=== PATIENT | male | born 1945 | race Caucasian/White ===

== ENCOUNTER 2020-06-23 15:41 | Inpatient (IN) | payer OTHER, MEDICARE ==
[~2020-06-23] VITALS: Ht 188 cm; Wt 110.3 kg
--- NOTE | 2020-06-23 15:58 | NUR ---
PATIENT TO ROOM VIA WHEELCHAIR AND PHYSICIAN NOTIFIED OF PATIENT STATUS
--- NOTE | 2020-06-23 16:21 | NUR ---
REGISTRATION AT BEDSIDE
[2020-06-23 16:37] LABS: HEMATOCRIT 36.9 % (39.0-50.0); HEMOGLOBIN 12.4 g/dl (14.0-18.0); IMMATURE GRANULOCYTES 1.1 % (0.0-5.0); MEAN CELL VOLUME 87.4 fL CALC (80.0-100.0); MEAN CORPUSCULAR HGB 29.4 pG CALC (26.0-32.0); MEAN CORPUSCULAR HGB CONC 33.6 g/dL CAL (32.0-36.0); NEUT# 8.18 thou/uL (1.82-7.42); RED BLOOD COUNT 4.22 mill/uL (4.70-6.10); RED CELL DISTRI WIDTH 14.3 % (11.5-15.5)
[2020-06-23 16:54] LABS: ALBUMIN 3.7 g/dL (3.2-5.0); ALKALINE PHOSPHATASE 45 u/l (38-126); ANION GAP 16 (6-22 (CALC)); BILIRUBIN, TOTAL 0.9 mg/dL (0.0-1.4); BUN 32 mg/dL (8-23); BUN/CREATININE RATIO 30 (12-20 (CALC)); CARBON DIOXIDE 22 mmol/l (22-30); CHLORIDE 100 mmol/l (95-108); CREATININE 1.1 mg/dL (0.7-1.3); GFR > 60 ML/MIN (>=60 (CALC)); GFR FOR AFR.AMER. > 60 ML/MIN (>=60 (CALC)); LIPASE 198 u/l (23-300); POTASSIUM 4.2 mmol/l (3.5-5.1); SGOT/AST 70 u/l (19-48); SODIUM 133 mmol/l (137-146); TOTAL PROTEIN 6.6 g/dL (6.3-8.2)
[2020-06-23 16:56] LABS: ACT PARTIAL THROMBO TIME 30.9 SECONDS (20.0-32.5); INTERNATIONAL NORMALIZED RATIO 1.1 RATIO (0.7-1.3); PROTHROMBIN TIME 10.9 SECONDS (9.0-12.5)
[2020-06-23 17:03] LABS: D-DIMER 1.28 mg/L (0.19-0.60)
--- NOTE | 2020-06-23 17:15 | NUR ---
P[T AWARE OF PLANNED LAB WORK, NEED FOR BC, AND EKG ETC... PT SLOW TO RESPOND BUT IS ALERT AND ORIENTED, PER BROTHER IN LAW HE IS NORMALLY VERY SHARP AND WITH IT.
--- NOTE | 2020-06-23 18:10 | NUR ---
CALL INTO TO RECONCILE MEDICATIONS, AWAITING CALL BACK, PT AWARE OF NEED FOR IV ACCESS AND PLAN FOR CT SCAN
[2020-06-23] MEDS ORDERED: ZESTRIL10 M1 PO (18:38)
[2020-06-23] MEDS ORDERED: GLIMEPIRIDE4 MG PO (18:39)
[2020-06-23] MEDS ORDERED: METFORMIN500 M2 PO (18:39)
[2020-06-23] MEDS ORDERED: SIMVASTATIN40 MG PO (18:40)
[2020-06-23] MEDS ORDERED: ACTOS30 MG PO (18:40)
--- NOTE | 2020-06-23 18:43 | NUR ---
RETURNS CALL MEDICATION REC COMPLETED, PT [facility] RADIOLOGY [facility]
[2020-06-23 18:50] LABS: URINE BILIRUBIN - DIPSTICK NEGATIVE (NEGATIVE); URINE BLOOD DIPSTICK TRACE-INTACT (NEGATIVE); URINE GLUCOSE - DIPSTICK NEGATIVE (NEGATIVE); URINE KETONE NEGATIVE (NEGATIVE); URINE LEUK ESTERASE NEGATIVE (NEGATIVE); URINE NITRITE - DIPSTICK NEGATIVE (Negative); URINE PH 5.5 (4.5-8.0); URINE PROTEIN - DIPSTICK 100 mg/dL (NEG-TRACE); URINE SPECIFIC GRAVITY 1.025; URINE UROBILINOGEN - DIPSTICK 0.2 E.U./dL (0.2)
[2020-06-23 18:52] LABS: URINE COLOR DK. YELLOW
[2020-06-23 18:57] LABS: URINE RBC 0-2 RBC/hpf (0-5)
--- NOTE | 2020-06-23 19:00 | NUR ---
RETURNED FROM RADIOLOGY. AWAKE ALERT CONVERSANT.
--- NOTE | 2020-06-23 20:00 | NUR ---
RESTING COMFORTABLY. AWAITING TEST RESULTS
--- NOTE | 2020-06-23 21:00 | NUR ---
NO CHANGE IN EXAM.
--- NOTE | 2020-06-23 22:15 | NUR ---
SAO2 91%. INCREASED O2 TO 4 LPM.
[2020-06-24 02:25] VITALS: BP 152/71
--- NOTE | 2020-06-24 02:26 | NUR ---
PLACED IN HOSPITAL BED. STATES FEELING BETTER.
--- NOTE | 2020-06-24 02:43 | NUR ---
DESATS TO 88 ON 4 LPM. WILL CONVERT TO VENTI-MASK.
--- NOTE | 2020-06-24 02:58 | NUR ---
PLACED ON 50% VM. SAO2 91%. ABG ORDERED.
--- NOTE | 2020-06-24 03:17 | NUR ---
SAO2 STABLE AT 94% ON 50% VM.
--- NOTE | 2020-06-24 05:59 | NUR ---
AM LABS DRAWN. COMFORTABLE. SLEEPING. SAO2 96% ON 50% VM.
[2020-06-24 06:15] LABS: HEMATOCRIT 36.9 % (39.0-50.0); HEMOGLOBIN 12.6 g/dl (14.0-18.0); IMMATURE GRANULOCYTES 1.9 % (0.0-5.0); MEAN CELL VOLUME 87.2 fL CALC (80.0-100.0); MEAN CORPUSCULAR HGB 29.8 pG CALC (26.0-32.0); MEAN CORPUSCULAR HGB CONC 34.1 g/dL CAL (32.0-36.0); NEUT# 8.02 thou/uL (1.82-7.42); RED BLOOD COUNT 4.23 mill/uL (4.70-6.10); RED CELL DISTRI WIDTH 14.4 % (11.5-15.5)
[2020-06-24 06:22] LABS: ALBUMIN 3.4 g/dL (3.2-5.0); ALKALINE PHOSPHATASE 46 u/l (38-126); ANION GAP 17 (6-22 (CALC)); BUN 31 mg/dL (8-23); BUN/CREATININE RATIO 37 (12-20 (CALC)); CARBON DIOXIDE 22 mmol/l (22-30); CHLORIDE 100 mmol/l (95-108); CREATININE 0.8 mg/dL (0.7-1.3); GFR > 60 ML/MIN (>=60 (CALC)); GFR FOR AFR.AMER. > 60 ML/MIN (>=60 (CALC)); SGOT/AST 58 u/l (19-48); SODIUM 134 mmol/l (137-146); TOTAL PROTEIN 6.2 g/dL (6.3-8.2)
--- NOTE | 2020-06-24 07:00 | NUR ---
RECEIVED BEDSIDE REPORT FROM JACK RAMIREZ.
[2020-06-24 08:00] VITALS: BP 136/64
--- NOTE | 2020-06-24 08:15 | NUR ---
RESTING IN SEMI FOWLERS WITH EYES CLOSED, AWAKENS EASILY. RESPS EVEN AND UNLABORED ON 50% VENTI MASK. ORIENTED TO PERSON, PLACE AND TIME. PO FOOD AND FLUIDS OFFERED. DENIES NEEDS AT THIS TIME. BED IN LOWEST POSITION WITH WHEELS LOCKED. CALL LIGHT WITHIN REACH.
[2020-06-24 12:00] VITALS: BP 146/71
--- NOTE | 2020-06-24 13:45 | NUR ---
DR LANCASTER AT BEDSIDE.
--- NOTE | 2020-06-24 14:57 | NUR ---
REPORT CALLED TO [facility].
--- NOTE | 2020-06-24 15:10 | NUR ---
TO MED SURG VIA BED. O2 AT 2L VIA NC. TELE MONITOR IN PLACE.
[2020-06-24 15:46] VITALS: BP 134/69
--- NOTE | 2020-06-24 16:22 | NUR ---
PT ARRIVED VIA BED FROM THE ER. AXOX3 O2 ANT 3-4 L . TELE PLACED ON THE PATIENT RUNNING SR. HL TO THE R AC. DENIES PAIN, NO RESP DESTRESS NOTED. NEUROS INTACT. TEDS PLACED ON THE PATIENT. EDUCATED TO THE ROOM CALL LIGHT TV BED AND TELEPHONE. REPOSITIOEND FOR COMFORT, SIDE RAILS UP CALL LIGHT IN REACH BED LOCKED IN LOW POSITION, ALL SAFTY MEASURES IN PLACE WILL CONTINUE TO MONIOTR THE PATIENT.
--- NOTE | 2020-06-24 20:00 | NUR ---
PT VERY PLEASANT RESTING IN BED. URINAL BY THE BED SIDE ALONG WITH CALL LIGHT ALERT AND ORIENTED. NO COMPLAINT OF PAIN. WAITING ON ABT. FAL RISK WRIST BAND ON WRIST. IV ON RAC AND PATENT. CALL LIGHT WITHIN RANGE
[2020-06-24 20:30] VITALS: BP 137/66
--- NOTE | 2020-06-24 22:22 | NUR ---
CHE CALLED WITH A CRITICAL GLUCOSE OF 505. PT ASYTOMATIC SLIDING SCALE GIVEN PHYSICAN NOTIFIED
[2020-06-24 23:28] VITALS: BP 157/70
--- NOTE | 2020-06-25 | NUR ---
PT SLEEPING PEACEFULYY ON BED O2 STILL RUNNING. NO COMPLAINT OF PAIN. CALL LIGHT WITHIN RANGE WILL CONTINUE TO MONITOR
[2020-06-25 04:00] VITALS: BP 124/70
--- NOTE | 2020-06-25 04:00 | NUR ---
PT SEEPING PEACEFULLY WILL CONTINUE TO MONITOR
[2020-06-25 08:50] VITALS: BP 122/60
--- NOTE | 2020-06-25 08:56 | NUR ---
RESTING IN THE BED AXOX3. O2 OFF PATIENT, REPLACED AND 02 SATS RETURNED TO 94 %. EDUCATED SOB AND RESP DISTRESS. DENIES PAIN AT THIS TIME. REPOSITIOEND FOR COMFORT, SIDE RAILS UP CALL LIGHT IN REACH, ALL SAFTY MEASURES IN PLACE. WILL CONTINUE TO MONIOTR THE PATIENT.
[2020-06-25 11:12] VITALS: BP 145/74
--- NOTE | 2020-06-25 12:12 | NUR ---
NOTED ELEVATED BS REPORTED TO PROVIDER NEW ORDERS RECEIVED AND CARRIED OUT. ENCOURAGE TO USE ISSU. O2 SATS MAINTAINING AT 95%. WILL CONTINUE TO MONITOR THE PATIENT.
--- NOTE | 2020-06-25 14:00 | NUR ---
PT AMB TO THE BATHROOM WITH 02 AND ASST. RANDI WELL NO SOB, NO RESP DISTRESS NOTED.
[2020-06-25 15:18] VITALS: BP 125/64
--- NOTE | 2020-06-25 16:47 | NUR ---
RESTING COMFORTABLE IN THE BED NO DISTRESS NOTED AT THIS TIME. WILL CONTINUE TO MONITOR THE PATIENT.
[2020-06-25 19:50] VITALS: BP 140/77
--- NOTE | 2020-06-25 20:00 | NUR ---
PT IN BED RESTING. DENIES ANY PAIN OR DISCOMRT. OXYGEN RUNNING CONTINUOUSLY. IV SALINE LOCK. LUNGS SOUNDS STILL DIMINISHED. TELE STILL ON AND RUNNING SR. BLOOD SUGAR STILL RUNNING HIGH. APPROPRIATE INSULIN GIVEN. NO SYMPTOMS. PT BELONGING AND CALL LIGHT NEAR HIM WILL CONTINUE TO MONITOR
[2020-06-26] VITALS: BP 111/56
--- NOTE | 2020-06-26 | NUR ---
PT SLEEPING PEACEFULLY. LIGHT OFF IN ROOM. OXYGEN CONTNUES RUNNING. TELE READYING SB. CALL LIGHT NEAR PT WILL CONTINUE TO MONITOR
[2020-06-26 04:00] VITALS: BP 149/73
--- NOTE | 2020-06-26 04:00 | NUR ---
PT REMAINS SLEEPING IN HIS ROOM. IV SALINE LOCK. DENIES PAIN AT THIS TIME. CALL LIGHT WITHIN REACH WILL CONTINUE TO MONITOR
[2020-06-26 05:38] LABS: HEMATOCRIT 36.3 % (39.0-50.0); HEMOGLOBIN 12.2 g/dl (14.0-18.0); IMMATURE GRANULOCYTES 1.4 % (0.0-5.0); MEAN CELL VOLUME 87.7 fL CALC (80.0-100.0); MEAN CORPUSCULAR HGB 29.5 pG CALC (26.0-32.0); MEAN CORPUSCULAR HGB CONC 33.6 g/dL CAL (32.0-36.0); NEUT# 7.67 thou/uL (1.82-7.42); RED BLOOD COUNT 4.14 mill/uL (4.70-6.10); RED CELL DISTRI WIDTH 13.4 % (11.5-15.5)
[2020-06-26 06:08] LABS: ALBUMIN 3.2 g/dL (3.2-5.0); ALKALINE PHOSPHATASE 51 u/l (38-126); ANION GAP 12 (6-22 (CALC)); BILIRUBIN, TOTAL 0.8 mg/dL (0.0-1.4); BUN 33 mg/dL (8-23); BUN/CREATININE RATIO 44 (12-20 (CALC)); CARBON DIOXIDE 26 mmol/l (22-30); CHLORIDE 105 mmol/l (95-108); CREATININE 0.8 mg/dL (0.7-1.3); GFR > 60 ML/MIN (>=60 (CALC)); GFR FOR AFR.AMER. > 60 ML/MIN (>=60 (CALC)); POTASSIUM 4.5 mmol/l (3.5-5.1); SGOT/AST 35 u/l (19-48); SODIUM 139 mmol/l (137-146); TOTAL PROTEIN 5.9 g/dL (6.3-8.2)
[2020-06-26 07:05] VITALS: BP 148/70
--- NOTE | 2020-06-26 07:05 | NUR ---
PATIENT LAYING IN BED AT THIS TIME. PATIENT DEINES ANY PAIN OR NEEDS PATIENT O2 ON AT 3 LITERS AND SPO2 IS 96%. LUNG BARAJAS ARE DIMINISHED IN LOWER BASES AND EXPIRATORY WHEEZES NOTED. PATIENT GIVEN EDUCATION ON COVID 19 AND SYMPTOMS AT THIS TIME. PATIENT ON TELE MONITOR AND BEING MONITORED BY ED. SIDERAILS UP X 2 CALL LIGHT WITHIN REACH.
[2020-06-26 11:11] VITALS: BP 141/79
--- NOTE | 2020-06-26 12:00 | NUR ---
PATIENT ALERT AND ORIENTED RESTINIG IN BED AT THIS TIME DENIES ANY PAIN. ALL PERSONAL ITEMS LOCATED WITHIN REACH AT THIS TIME. CALL LIGHT WITHIN REACH. O2 REMAINS ON AT 3LITERS AND TELE MONITOR REMAINS IN PLACE.
[2020-06-26 15:30] VITALS: BP 144/70
--- NOTE | 2020-06-26 15:59 | NUR ---
DANYT LAYING IN BED AT THIS TIME. DENIES ANY NEEDS STATED "I FEEL GOOD". PATIENT PERSONAL BELONGING ARE WITHIN REACH. CALL LIGHT WITHIN REACH SIDERAILS UP X 2 . PATIENT DENIES ANY PAIN AND O2 REMAINS ON AT 3 LITERS AT THIS TIME. TELE MONITOR IN PLACE AND BEING MONITORED BY ED.
[2020-06-26 19:13] VITALS: BP 152/80
--- NOTE | 2020-06-26 21:04 | NUR ---
PATIENT STANDING AT BEDSIDE TO VOID 400CC OF VALENCIA URINE IN URINAL. BACK TO BED. ALERT AND ORIENTEDX3 WITH O2 VIA NASAL CANNULA IN PLACE AT 3LPM-O2 SAT 95% AT THIS TIME. NON PRODUCTIVE COUGH NOTED. PATIENT WITH ACCU-CHECK OF 299-COVERED WITH HUMALOG 5UNITS SQ. HS SNACK PROVIDED. ROCEPHIN HUNG AND INFUSING VIA RAC IV SITE. SITE IS HEALTHY AT THIS TIME. PATIENT IS ABLE TO DEMONSTRATE PROPER USE OF IS-ENCOURAGED USE OF IS Q1H WHILE AWAKE IN REPS OF 10. LUNGS WITH WHEEZE NOTED TO BASES. TELE MONITOR IN PLACE. PATIENT STATES THAT HE DID HAVE A BM TODAY. NO PERIPERAL EDEMA NOTED AND PULSES ARE PALPABLE. PATIENT IS ON ISOLATION IN NEG PRESSURE ROOM FOR COVID. SAFETY PRECAUTIONS REINFORCED. CALL LIGHT IN REACH. WILL CONT TO MONITOR.
[2020-06-27] VITALS: BP 156/70
--- NOTE | 2020-06-27 01:46 | NUR ---
PATIENT RESTING IN BED WITH HOB SLIGHTLY ELEVATED AND O2 VIA NASAL CANNULA IN PLACE AT 3LPM. EYES ARE CLOSED. RESPS ARE EVEN AND UNLABORED. TELE MONITOR IN PLACE. CALL LIGHT IN REACH. WILL CONT TO MONITOR.
[2020-06-27 04:00] VITALS: BP 151/69
--- NOTE | 2020-06-27 04:29 | NUR ---
PATIENT RESTING IN BED AT THIS TIME WITH O2 VIA NASAL CANNULA IN PLACE. TELE MONITOR IN PLACE. SALINE LOCK TO RAC INTACT. CALL LIGHT IN REACH. WILL CONT TO MONITOR.
[2020-06-27 05:46] LABS: HEMATOCRIT 36.7 % (39.0-50.0); HEMOGLOBIN 12.2 g/dl (14.0-18.0); MEAN CORPUSCULAR HGB 29.3 pG CALC (26.0-32.0); MEAN CORPUSCULAR HGB CONC 33.2 g/dL CAL (32.0-36.0); RED BLOOD COUNT 4.17 mill/uL (4.70-6.10); RED CELL DISTRI WIDTH 13.3 % (11.5-15.5)
[2020-06-27 06:20] LABS: ANION GAP 12 (6-22 (CALC)); BUN 22 mg/dL (8-23); BUN/CREATININE RATIO 34 (12-20 (CALC)); CARBON DIOXIDE 24 mmol/l (22-30); CHLORIDE 107 mmol/l (95-108); CREATININE 0.6 mg/dL (0.7-1.3); GFR > 60 ML/MIN (>=60 (CALC)); GFR FOR AFR.AMER. > 60 ML/MIN (>=60 (CALC)); MAGNESIUM 1.7 mg/dL (1.6-2.3); POTASSIUM 4.1 mmol/l (3.5-5.1); SODIUM 139 mmol/l (137-146)
[2020-06-27 07:10] VITALS: BP 148/61
[2020-06-27 11:20] VITALS: BP 140/73
--- NOTE | 2020-06-27 11:45 | NUR ---
PATIENT LAYING IN BED WATCHING TV AT THIS TIME O2 REMAINS ON AT 3L PATIENT DENIES ANY NEEDS CURRENTLY. PERSONAL ITEMS WITHIN REACH SIDERAILS UP X 2 CALL LIGHT WITHIN REACH.
--- NOTE | 2020-06-27 14:00 | NUR ---
PATIENT O2 TURNED DOWN TO 2 LITERS AT THIS TIME AND HIS SPO2 94% AT THIS TIME. WILL CONTINUE TO MONITOR.
[2020-06-27 16:03] VITALS: BP 155/80
--- NOTE | 2020-06-27 16:12 | NUR ---
PATIENT RESTING IN BED AT THIS TIME O2 REMAINS ON AT 2 LITERS AND SPO2 IS 93%. PATIENT DENIES ANY PAIN OR NEEDS CURRENTLY AND SIDERAILS ARE UPX2 CALL LIGHT WITHIN REACH.
[2020-06-27 19:00] VITALS: BP 153/73
--- NOTE | 2020-06-27 21:00 | NUR ---
PATIENT SITTING UP IN BED-AWAKE ALERT AND ORIENTEDX3 WITH O2 VIA NASAL CANNULA AT 2LPM-O2 SAT 97%. TELE MONITOR IN PLACE. VOIDING QS VALENCIA URINE IN URINAL. PATIENT STATES THAT HE HAD BM EARLIER TODAY. OCC NON-PRODUCTIVE COUGH. PATIENT ON ISOLATION IN NEG PRESSURE ROOM FOR COVID. PATIENT WITH IV SITE TO RAC-SITE IS HEALTHY AND ROCEPHIN HUNG ORDERED. [id number] TONIGHT AND COVERED WITH HUMALOG 7UNITS SQ PER SLIDING SCALE COVERAGE. SAFETY PRECAUTIONS REINFORCED. CALL LIGHT IN REACH. WILL CONT TO MONITOR.
[2020-06-28 00:34] VITALS: BP 136/69
[2020-06-28 04:00] VITALS: BP 155/74
--- NOTE | 2020-06-28 04:39 | NUR ---
PATIENT CALLED FOR ASSISTANCE TO THE BR FOR A BM-RESTING IN BED WITH O2 VIA NASAL CANNULA IN PLACE AT 2LPM O2 SAT WAS 92%. PATIENT TO BR WITH STEADY GAIN FOR NORMANL BM PER PATIENT AND BACK TO BED. O2 SAT RECHECKED AFTER BACK IN BED AND WAS IN MID-HIGH 80"S. O2 VIA NASAL CANNULA REAPPLIED. TELE MONITOR IN PLACE. SALINE LOCK TO RAC REMAINS INTACT. SAFETY PRECAUTIONS REINFORCED. CALL LIGHT IN REACH. WILL CONT TO MONITOR.
[2020-06-28 05:44] LABS: HEMATOCRIT 37.3 % (39.0-50.0); HEMOGLOBIN 12.5 g/dl (14.0-18.0); IMMATURE GRANULOCYTES 4.1 % (0.0-5.0); MEAN CELL VOLUME 87.4 fL CALC (80.0-100.0); MEAN CORPUSCULAR HGB 29.3 pG CALC (26.0-32.0); MEAN CORPUSCULAR HGB CONC 33.5 g/dL CAL (32.0-36.0); NEUT# 5.88 thou/uL (1.82-7.42); RED BLOOD COUNT 4.27 mill/uL (4.70-6.10); RED CELL DISTRI WIDTH 13.2 % (11.5-15.5)
[2020-06-28 06:14] LABS: ALBUMIN 2.9 g/dL (3.2-5.0); ALKALINE PHOSPHATASE 51 u/l (38-126); ANION GAP 11 (6-22 (CALC)); BILIRUBIN, TOTAL 0.7 mg/dL (0.0-1.4); BUN 16 mg/dL (8-23); BUN/CREATININE RATIO 26 (12-20 (CALC)); C-REACTIVE PROTEIN 3.1 mg/dL (0-0.9); CARBON DIOXIDE 25 mmol/l (22-30); CHLORIDE 106 mmol/l (95-108); CREATININE 0.6 mg/dL (0.7-1.3); GFR > 60 ML/MIN (>=60 (CALC)); GFR FOR AFR.AMER. > 60 ML/MIN (>=60 (CALC)); POTASSIUM 3.8 mmol/l (3.5-5.1); SGOT/AST 41 u/l (19-48); SODIUM 139 mmol/l (137-146); TOTAL PROTEIN 5.7 g/dL (6.3-8.2)
--- NOTE | 2020-06-28 07:15 | NUR ---
REPORT RECEIVED FROM JAMES ALCAZAR
[2020-06-28 08:39] VITALS: BP 146/66
--- NOTE | 2020-06-28 08:40 | NUR ---
PT RESTING IN SEMI FOWLERS POSITION,A&O X3;VS OBTAINED AND ASSESSMENT COMPLETED;PT DENIES ANY CURRENT PAIN OR DISCOMFORTS,PAIN SCALE AND REPORTING EDUCATED;RESPIRATIONS SHALLOW ON O2 @ 2L VIA NC,CLEAR/DIMINISHED LUNG SOUNDS NOTED;I.S. AT BEDSIDE AND PT DEMONSTRATED UNDERSTANDING,ENCOURAGED USE 10X PER HOUR;ABDOMEN DISTENDED/SOFT ON PALPATION AND ACTIVE IN ALL 4 QUADRANTS;WEAK PEDAL PULSES;SKIN INTACT;TELE MONITORING IN PLACE;#20G TO RAC FLUSHED AND PATENT,SITE APPEARS HEALTHY;ACCUCHECK 223;OXYGEN QUALIFICATION TEST COMPLETED AT THIS TIME;WITH REMOVAL OF O2 PT SATS DROPPED TO 87% WITHOUT AMBULATION;OXYGEN REPLACED AND O2 SATS KELLY TO 93%;PT REMAINS IN AIR/CONTACT PRECAUTIONS DUE TO COVID19 DX;PT DENIES ANY ADDITIONAL NEEDS AT THIS TIME;ENCOURAGED TO CALL FOR ASSISTANCE IF NEEDED;FALL PRECAUTIONS IN PLACE WITH BED IN THE LOWEST POSITION AND CALL LIGHT IN REACH;WILL CONTINUE TO MONITOR
--- NOTE | 2020-06-28 10:11 | NUR ---
AT BEDSIDE DISCUSSING POC.
[2020-06-28 10:36] VITALS: BP 141/69
--- NOTE | 2020-06-28 11:25 | NUR ---
PT RESTING IN SEMI FOWLERS POSITION WATCHING TV;RESPIRATIONS EVEN AND UNLABORED ON O2 @ 2L VIA NC;PT DENIES ANY CURRENT PAIN OR DISCOMFORTS;TELE MONITORING IN PLACE;IV SITE PATENT;ACCUCHECK 298, PT WAS COVERED WITH SLIDING SCALE INSULIN PER ORDER;PT EDUCATED ON PLANS TO D/C HOME ONCE IV ABX ARE COMPLETED THIS AFTERNOON AND OXYGEN IS DELIVERED FOR HOME USE, PT VERBALIZES UNDERSTANDING AND DENIES ANY ADDITIONAL QUESTIONS OR NEEDS;ENCOURAGED TO CALL FOR ASSISTANCE IF NEEDED;CALL LIGHT IN REACH;WILL CONTINUE TO MONITOR
[2020-06-28] MEDS ORDERED: ZITHROMAX250 MG PO (13:09)
[2020-06-28] MEDS ORDERED: DEXAMETHASON6 MG PO (13:10)
[2020-06-28] MEDS ORDERED: OXY1 (13:10)
--- NOTE | 2020-06-28 14:30 | NUR ---
ALL DISCHARGE INSTRUCTIONS PROVIDED AT THIS TIME;PT EDUCATED TO COMPLETE RX FOR DECADRON AND ZITHRO.BOTH RX SENT TO [facility];F/U WITH PCP IN THE NEXT WEEK, ISOLATE 14 DAYS FROM ONSET OF SYMPTOMS,MONITOR BLOOD SUGARS AND OXYGEN SATURATION;HOME OXYGEN SUPPLIED BY [employer] AND PT EDUCATED ON USAGE, PT VERBALIZES UNDERSTANDING;PT DENIES ANY ADDITIONAL QUESTIONS OR NEEDS;IV ABX INFUSING AT THIS TIME THEN PATIENT WILL BE D/C HOME;[facility] TO TRANSPORT PT HOME;WHEELCHAIR TO BE PROVIDED FOR D/C;WILL CONTINUE TO MONITOR
--- NOTE | 2020-06-28 15:45 | NUR ---
IV SITE REMOVED WITH CATHETER INTACT;PT TO BE DISCHARGE AT THIS TIME HOME, [facility] TO TRANSPORT HOME;WILL CONTINUE TO MONITOR
--- NOTE | 2020-06-28 15:55 | NUR ---
Discharge instructions given. Patient verbalizes understanding of same. Discharged in stable condition via Wheelchair to Home with family. All belongings sent with pt. PT TRANSPORTED TO [facility] IN STABLE CONDITION VIA WHEELCHAIR ACCOMPANIED BY WHITNEY [facility]WTON FOR DISCHARGE HOME.ALL BELONGINGS LEFT WITH PT.[facility] TO TRANSPORT PT HOME.
[2020-06-28] MEDS ORDERED: EC ASPIRIN325 MG PO (20:53)
== END 2020-06-28 15:56 | disposition home health service (06) | DRG 177 ==
LOC: ED 15:41 → ED-I 20:15 → ED 20:31 → ED-I 20:31 → MS2 06-24 13:38
PROVIDERS: Nurse Practitioner; ADMIT Internal Medicine; ATTEND Internal Medicine
PROC: XW033E5 Introduction of Remdesivir Anti-infective into Peripheral Vein, Percutaneous Approach, New Technology Group 5 (ICD-10-PCS; principal; 2020-06-24)
DX: U07.1 COVID-19 (principal); J12.82 Pneumonia due to coronavirus disease 2019; J96.01 Acute respiratory failure with hypoxia; E11.65 Type 2 diabetes mellitus with hyperglycemia; T38.0X5A Adverse effect of glucocorticoids and synthetic analogues, initial encounter; R53.83 Other fatigue; Z79.84 Long term (current) use of oral hypoglycemic drugs
CPT/HCPCS: J1650; Q9967